=== PATIENT | male | born 1940 | race Caucasian/White ===

== ENCOUNTER 2024-09-06 18:44 | Emergency (ER) | payer MEDICARE, BC ==
[2024-09-06 18:57] LABS: BASOPHILS ABSOLUTE AUTO 0.04 K/uL (0.00-0.10); BASOPHILS PERCENT AUTO 0.3 % (0.1-1.3); EOSINOPHILS ABSOLUTE AUTO 0.03 K/uL (0.00-0.40); EOSINOPHILS PERCENT AUTO 0.3 % (0.0-5.4); HEMATOCRIT 41.9 % (38.4-49.7); HEMOGLOBIN 13.3 g/dL (12.9-16.9); IMMATURE GRAN ABSOLUTE AUTO 0.08 K/uL (0.00-0.23); IMMATURE GRAN PERCENT AUTO 0.7 % (0.0-0.7); LYMPHOCYTES ABSOLUTE AUTO 0.88 K/uL (0.8-3.3); LYMPHOCYTES PERCENT AUTO 7.4 % (11.4-47.7); MEAN CORPUSCULAR HEMOGLOBIN 27.4 pg (31.6-35.5); MEAN CORPUSCULAR HGB CONC 31.7 g/dL (31.6-35.5); MEAN CORPUSCULAR VOLUME 86.2 fL (81.4-99.0); MONOCYTES ABSOLUTE AUTO 0.56 K/uL (0.20-0.90); MONOCYTES PERCENT AUTO 4.7 % (3.3-12.6); NEUTROPHILS PERCENT AUTO 86.6 % (40.0-78.1); PLATELET COUNT,PLT 265 K/uL (130-375); RED BLOOD CELL COUNT 4.86 M/uL (4.14-5.76); WHITE BLOOD CELL COUNT,WBC 11.9 K/uL (3.2-11.0)
[2024-09-06] MEDS: Aspirin 81 MG Tab.Chew PO ONE (19:10)
[2024-09-06] MEDS: Sodium Chloride 0.9% 10 ML Syringe FLUSH PRN (19:10)
[2024-09-06 19:21] LABS: ALANINE AMINOTRANSFERASE,ALT 31 U/L (12-78); ALBUMIN 3.4 g/dL (3.4-5.0); ALKALINE PHOSPHATASE 85 U/L (46-116); ASPARTATE AMNIOTRANSFERASE,AST 19 U/L (15-37); BILIRUBIN TOTAL 0.5 mg/dL (0.2-1.0); BLOOD UREA NITROGEN,BUN 33 mg/dL (7-18); CALCIUM 9.2 mg/dL (8.5-10.1); CARBON DIOXIDE,CO2 20 mmol/L (21-32); CHLORIDE,CL 108 mmol/L (100-108); CREATININE 2.1 mg/dL (0.8-1.3); EST CRCL DRUG DOSING (CG) 25.79 mL/min; ESTIMATED GFR 31 mL/min (>60); GLUCOSE RANDOM 196 mg/dL (74-106); POTASSIUM,K 4.8 mmol/L (3.6-5.2); PROTEIN TOTAL,TP 6.7 g/dL (6.4-8.2); SODIUM,NA 141 mmol/L (140-148); TROPONIN I HIGH SENSITIVITY 22.2 pg/mL (<=60.3)
[2024-09-06 19:23] LABS: ANION GAP 17.8 mmol/L (5.0-14.0)
[2024-09-06] MEDS: Sodium Chloride 0.9% 100 ML IV SCH (21:20)
[2024-09-06] MEDS: Iopamidol 755 Mg/ML 100 ML Bottle IV SCH (21:20)
[2024-09-06] MEDS: Sodium Chloride 0.9% 10 ML Syringe FLUSH ONE (21:20)
[2024-09-06] MEDS: Ondansetron 4 MG/2 ML SDV IVPUSH ONE (21:21)
[2024-09-06] MEDS: Acetaminophen 500 MG Tab PO ONE (21:39)
== END 2024-09-06 22:54 | disposition home or self-care (01) ==
LOC: JP.ED 18:44
DX: R07.9 Chest pain, unspecified (principal); Z88.2 Allergy status to sulfonamides
CPT/HCPCS: 36415; 71046; 71275; 80053; 84484; 85025; 85379; 93005; 96374; 99285; A9270; J2405; Q9967